=== PATIENT | female | born 1965 | race Caucasian/White ===

== ENCOUNTER 2016-11-05 13:06 | Emergency (ER) | payer MEDICARE, MEDICAID ==
[2016-11-05] MEDS ORDERED: NORMAL SALINE 1000 ML 1,000 ML IV PRN (14:02)
[2016-11-05] MEDS ORDERED: ONDANSETRON HCL INJ/PF 4 MG/2 ML SDV IV ONE ×2 (14:03→15:57)
--- NOTE | 2016-11-05 14:05 | ER Document Report ---
ED Medical Screen (RME) - General Chief Complaint: Vomiting Stated Complaint: WEAKNESS Time Seen by Provider: 11/05/16 14:01 Notes: Patient states that several weeks ago she went to her family physician with nausea and vomiting and was diagnosed with H pylori infection. She states she was then placed on a triple regimen of Carafate Prilosec and Biaxin. Also Flagyl was added. She states that the vomiting has increased and she also now has diarrhea. Patient also has diffuse abdominal pain. Patient states she has been unable to eat for almost 1 week. TRAVEL OUTSIDE OF THE [place] IN LAST 30 DAYS: No - Related Data Allergies/Adverse Reactions: Sulfa (Sulfonamide Antibiotics) Allergy (Severe, Verified 11/05/16 13:13) doxycycline [Doxycycline] Allergy (Verified 11/05/16 13:13) gatifloxacin [From Tequin] Allergy (Verified 11/05/16 13:13) nitrofurantoin [From Macrobid] Allergy (Verified 11/05/16 13:13) nitrofurantoin macrocrystalline [From Macrobid] Allergy (Verified 11/05/16 13:13 ) promethazine HCl [From Phenergan] Allergy (Verified 11/05/16 13:13) sumatriptan [From Imitrex] Allergy (Verified 11/05/16 13:13) sumatriptan succinate [From Imitrex] Allergy (Verified 11/05/16 13:13) Past Medical History - Past Medical History Cardiac Medical History: Reports: Hx Hypertension Pulmonary Medical History: Reports: Hx Asthma Neurological Medical History: Reports: Hx Migraine Endocrine Medical History: Reports: Hx Diabetes Mellitus Type 2 Renal/ Medical History: Denies: Hx Peritoneal Dialysis Past Surgical History: Reports: Hx Section - x2, Hx Hysterectomy, Hx Orthopedic Surgery - carpal tunnel - Immunizations Hx Diphtheria, Pertussis, Tetanus Vaccination: Yes Physical Exam - Vital signs Vitals: Temp Pulse Resp BP Pulse Ox 99.8 F 90 20 181/97 H 96 11/05/16 13:15 11/05/16 13:15 11/05/16 13:15 11/05/16 13:15 11/05/16 13:15 Course - Vital Signs Vital signs: Temp Pulse Resp BP Pulse Ox 99.8 F 90 20 181/97 H 96 11/05/16 13:15 11/05/16 13:15 11/05/16 13:15 11/05/16 13:15 11/05/16 13:15
[2016-11-05 14:44] LABS: ABSOLUTE BASOPHILS # (AUTO) 0.1 10^3/uL (0.0-0.2); ABSOLUTE EOSINOPHILS # (AUTO) 0.2 10^3/uL (0.0-0.6); ABSOLUTE LYMPHOCYTES (AUTO) 2.5 10^3/uL (0.5-4.7); ABSOLUTE MONOCYTES (AUTO) 0.9 10^3/uL (0.1-1.4); ABSOLUTE NEUT (AUTO) 12.3 10^3/uL (1.7-8.2); BASOPHILS % (AUTO) 0.7 % (0-2); HEMATOCRIT 46.2 % (36.0-47.0); HEMOGLOBIN 15.3 g/dL (12.0-15.5); HGB HCT DIFFERENCE -0.3; LYMPHOCYTES % (AUTO) 15.8 % (13-45); MEAN CORPUSCULAR HEMOGLOBIN 26.7 pg (27.0-33.4); MEAN CORPUSCULAR VOLUME 81 fl (80-97); MONOCYTES % (AUTO) 5.5 % (3-13); RED CELL DISTRIBUTION WIDTH 16.2 % (11.5-14.0)
[2016-11-05 14:56] LABS: APPEARANCE,URINE SLIGHTLY-CLOUDY; BILIRUBIN,URINE NEGATIVE (NEGATIVE); GLUCOSE, URINE 50 mg/dL (NEGATIVE); KETONES,URINE NEGATIVE (NEGATIVE); LEUKOCYTE ESTERASE,URINE SMALL (NEGATIVE); NITRITE,URINE NEGATIVE (NEGATIVE); PROTEIN,URINE NEGATIVE (NEGATIVE); URINE SPECIFIC GRAVITY 1.021; UROBILINOGEN,URINE NEGATIVE mg/dL (<2.0)
[2016-11-05 15:02] LABS: ALANINE AMINOTRANSFERASE 72 U/L (9-52); ALBUMIN 4.1 g/dL (3.5-5.0); ALKALINE PHOSPHATASE 114 U/L (38-126); ANION GAP 12 (5-19); ASPARTATE AMINO TRANSFERASE 45 U/L (14-36); BILIRUBIN,DIRECT 0.5 mg/dL (0.0-0.4); BILIRUBIN,TOTAL 0.6 mg/dL (0.2-1.3); BLOOD UREA NITROGEN 9 mg/dL (7-20); CALCIUM 9.7 mg/dL (8.4-10.2); CARBON DIOXIDE 25 mmol/L (22-30); CHLORIDE 107 mmol/L (98-107); CREATININE RESULT 0.67 mg/dL (0.52-1.25); GLUCOSE 103 mg/dL (75-110); LIPASE 104.1 U/L (23-300); POTASSIUM 3.6 mmol/L (3.6-5.0); SODIUM 143.6 mmol/L (137-145); TOTAL PROTEIN 7.4 g/dL (6.3-8.2)
--- NOTE | 2016-11-05 15:43 | ER Document Report ---
ED GI/ - General Information source: Patient TRAVEL OUTSIDE OF THE [place] IN LAST 30 DAYS: No - HPI Patient complains to provider of: Abdominal pain, Diarrhea, Vomiting Onset: Other - 2 weeks Timing/Duration: Constant Quality of pain: Cramping Associated symptoms: Other - see above <JOSSY WILLETT - Last Filed: 11/05/16 15:43> <MOLLY QUICK - Last Filed: 11/05/16 19:09> - General Chief Complaint: Vomiting Stated Complaint: WEAKNESS Time Seen by Provider: 11/05/16 14:01 Notes: Patient jordy 51 year old female who presents to the ED with complaints of nausea , vomiting, diarrhea(1-2x per hour), and abdominal pain x2 weeks. At that time patient was seen by her PCP and was diagnosed with H Pylori and she was placed on Carafate, Prilosec, Biaxin and Flagyn. Patients symptoms have worsened and she has been unable to eat for almost 1 week. Patient is unsure if she has a fever or not. (JOSSY WILLETT) - Related Data Allergies/Adverse Reactions: Sulfa (Sulfonamide Antibiotics) Allergy (Severe, Verified 11/05/16 13:13) doxycycline [Doxycycline] Allergy (Verified 11/05/16 13:13) gatifloxacin [From Tequin] Allergy (Verified 11/05/16 13:13) nitrofurantoin [From Macrobid] Allergy (Verified 11/05/16 13:13) nitrofurantoin macrocrystalline [From Macrobid] Allergy (Verified 11/05/16 13:13 ) promethazine HCl [From Phenergan] Allergy (Verified 11/05/16 13:13) sumatriptan [From Imitrex] Allergy (Verified 11/05/16 13:13) sumatriptan succinate [From Imitrex] Allergy (Verified 11/05/16 13:13) Home Medications: Current Home Medications Fentanyl 1 each TD ASDIR PRN 11/05/16 [History] Hydrochlorothiazide 25 mg PO DAILY 11/05/16 [History] Insulin Glargine,Hum.rec.anlog [Lantus] 100 unit SQ DAILY 11/05/16 [History] Metformin HCl [Glucophage] 1,000 mg PO BID 11/05/16 [History] Sitagliptin Phosphate [Januvia 25 mg Tablet] 25 mg PO DAILY 11/05/16 [History] Past Medical History - General Information source: Patient - Social History Smoking Status: Current Every Day Smoker Chew tobacco use (# tins/day): No Frequency of alcohol use: None Drug Abuse: None Family History: CAD Patient has suicidal ideation: No Patient has homicidal ideation: No - Past Medical History Cardiac Medical History: Reports: Hx Hypertension Pulmonary Medical History: Reports: Hx Asthma Neurological Medical History: Reports: Hx Migraine Endocrine Medical History: Reports: Hx Diabetes Mellitus Type 2 Renal/ Medical History: Denies: Hx Peritoneal Dialysis Past Surgical History: Reports: Hx Section - x2, Hx Hysterectomy, Hx Orthopedic Surgery - carpal tunnel - Immunizations Hx Diphtheria, Pertussis, Tetanus Vaccination: Yes Hx Pneumococcal Vaccination: 03/31/06 <JOSSY WILLETT - Last Filed: 11/05/16 15:43> Review of Systems - Review of Systems Constitutional: No symptoms reported EENT: No symptoms reported Cardiovascular: No symptoms reported Respiratory: No symptoms reported Gastrointestinal: See HPI, Abdominal pain, Diarrhea, Nausea, Vomiting Genitourinary: No symptoms reported Female Genitourinary: No symptoms reported Musculoskeletal: No symptoms reported Skin: No symptoms reported Hematologic/Lymphatic: No symptoms reported Neurological/Psychological: No symptoms reported <JOSSY WILLETT - Last Filed: 11/05/16 15:43> Physical Exam - General General appearance: Appears well, Alert In distress: None - HEENT Head: Normocephalic, Atraumatic Eyes: Normal Extraocular movements intact: Yes Pupils: PERRL - Respiratory Respiratory status: No respiratory distress Breath sounds: Normal - Cardiovascular Rhythm: Regular Heart sounds: Normal auscultation Murmur: No - Abdominal Inspection: Morbidly Obese Bowel sounds: Normal - dull percussion throughout Tenderness: Tender - diffusely, worse in the lower abdomen than upper - Back Back: Normal - Extremities General upper extremity: Normal inspection, Normal ROM General lower extremity: Normal inspection, Normal ROM. No: Edema - Neurological Neuro grossly intact: Yes - Psychological Associated symptoms: Normal affect, Normal mood - Skin Skin Temperature: Warm Skin Moisture: Dry Skin Color: Normal <JOSSY WILLETT - Last Filed: 11/05/16 15:43> Course - Laboratory Result Diagrams: 11/05/16 14:24 11/05/16 14:24 <JOSSY WILLETT - Last Filed: 11/05/16 15:43> - Laboratory Result Diagrams: 11/05/16 14:24 11/05/16 14:24 - Diagnostic Test Radiology reviewed: Image reviewed, Reports reviewed - CT scan with IV contrast does not show any acute abnormalities. <MOLLY QUICK - Last Filed: 11/05/16 19:09> - Re-evaluation Re-evalutation: 11/05/16 19:08 The patient's white blood cell count was a little elevated. CT scan was unremarkable. The patient has not had diarrhea since she got here despite reporting it was occurring 1-2 times per hour. She states at this time she is only passing gas. (MOLLY QUICK) - Vital Signs Vital signs: Temp Pulse Resp BP Pulse Ox 98.6 F 78 16 113/56 L 97 11/05/16 17:53 11/05/16 17:53 11/05/16 17:53 11/05/16 17:53 11/05/16 17:53 - Laboratory Laboratory results interpreted by me: 11/05/16 11/05/16 11/05/16 14:24 14:24 14:24 WBC 16.0 H RBC 5.70 H MCH 26.7 L RDW 16.2 H Absolute Neutrophils 12.3 H Direct Bilirubin 0.5 H AST 45 H ALT 72 H Urine Glucose (UA) 50 H Ur Leukocyte Esterase SMALL H Discharge <JOSSY WILLETT - Last Filed: 11/05/16 15:43> <MOLLY QUICK - Last Filed: 11/05/16 19:09> - Discharge Clinical Impression: Nausea, vomiting and diarrhea Abdominal pain Qualifiers: Abdominal location: generalized Qualified Code(s): R10.84 - Generalized abdominal pain Condition: Stable Disposition: HOME, SELF-CARE Additional Instructions: Abdominal Pain: There are many causes of abdominal pain. Pain can mean a serious problem requiring surgery (such as appendicitis). It can also be an innocent problem that goes away on its own (such as a viral infection). Often, time must pass to determine the cause of pain. The physician does not feel that hospitalization is necessary, at present. Things may change within the next 24 hours. Call the doctor or come back for re- examination if any problems occur, such as: (1) Pain that becomes more severe, steady, or becomes concentrated in one specific area. Also, pain that is more severe with movement or coughing. (2) Vomiting that persists or becomes more frequent. (3) Blood in the vomitus, urine, or bowel movements. Blood in the stool may have a tarry or black appearance. (4) Shaking chills or fever greater than 100 degrees F. (5) The abdomen becomes more distended or swollen. (6) Bowel movements cease. (7) Failure to improve as expected. Gastroenteritis: You may have gastroenteritis. This is an irritation of the stomach and intestinal tract. It's usually caused by a virus, but can also be caused by bacteria, toxins that cause food poisoning, or excessive alcohol intake. Symptoms may include fever, painful abdominal cramps, nausea, vomiting, and diarrhea. Start with small amounts (two to six ounces) of clear liquids (soft drinks , herb teas, broth, etc). Try to take fluids frequently even if you are vomiting, to prevent dehydration. When liquids are being consumed successfully , advance to small amounts of bland food (mashed potato, toast) for 6 - 12 hours. Gastroenteritis rarely requires medication. It goes away by itself. Use good handwashing so you don't spread germs. Wash underwear in very hot water. If symptoms are severe, talk to the doctor. Call your physician if blood appears in your vomitus or stool, if vomiting lasts longer than 24 hours, if the abdominal pain worsens or becomes localized to one area, or if you develop high fever. TAKE THE PAIN MEDICATION DISPENSED TONIGHT IF NEEDED. DRINK SMALL SIPS OF COOL CLEAR LIQUIDS. FOLLOW UP WITH YOUR DOCTOR TOMORROW FOR RECHECK. Scribe Attestation: 11/05/16 18:26 I personally performed the services described in the documentation, reviewed and edited the documentation which was dictated to the scribe in my presence, and it accurately records my words and actions. (MOLLY QUICK) Scribe Documentation - Scribe Written by [place]:: wellington Wray, 11/05/2016, [id number] acting as scribe for :: Vonnie <JOSSY WILLETT - Last Filed: 11/05/16 15:43>
[2016-11-05] MEDS ORDERED: MORPHINE SULFATE 10 MG/ML INJ IV ONE (15:57)
[2016-11-05] MEDS ORDERED: NORMAL SALINE 1000 ML 1,000 ML IV ONE (17:07)
--- NOTE | 2016-11-05 18:43 | RADIOLOGY REPORT (SQ) ---
EXAM DESCRIPTION: CT ABD/PELVIS WITH IV ONLY COMPLETED DATE/TIME: 11/05/2016 6:33 pm REASON FOR STUDY: abd pain, leukocytosis COMPARISON: None. TECHNIQUE: CT scan of the abdomen and pelvis performed using helical scanning technique with dynamic intravenous contrast injection. No oral contrast. Images reviewed with lung, soft tissue, and bone windows. Reconstructed coronal and sagittal MPR images reviewed. Delayed images for evaluation of the urinary system also acquired. All images stored on PACS. All CT scanners at this facility use dose modulation, iterative reconstruction, and/or weight based d osing when appropriate to reduce radiation dose to as low as reasonably achievable (ALARA). [facility]: Dose Right [facility]: CareDose [facility]: Dose Right [facility]: Teradose 4D [facility]: Railsware CONTRAST TYPE AND DOSE: 65 Isovue 370 RENAL FUNCTION: BUN 9, creatinine 0.67 RADIATION DOSE: . LIMITATIONS: None. FINDINGS: LOWER CHEST: No significant findings. No nodules or infiltrates. LIVER: Normal size. No masses. No dilated ducts. SPLEEN: Normal size. No focal lesions. PANCREAS: No masses. No significant calcifications. No adjacent inflammation or peripancreatic fluid collections. Pancreatic duct not dilated. GALLBLADDER: No identified stones by CT criteria. No inflammatory changes to suggest cholecystitis. ADRENAL GLANDS: No significant masses or asymmetry. RIGHT KIDNEY AND URETER: No solid masses. No significant calcifications. No hydronephrosis or hyd roureter. LEFT KIDNEY AND URETER: No solid masses. No significant calcifications. No hydronephrosis or hydr oureter. AORTA AND VESSELS: No aneurysm. No dissection. Renal arteries, SMA, celiac without stenosis. RETROPERITONEUM: No retroperitoneal adenopathy, hemorrhage or masses. BOWEL AND PERITONEAL CAVITY: No masses or inflammatory changes. No free fluid or peritoneal masses. APPENDIX: Normal. PELVIS: No mass. No free fluid. Normal bladder. ABDOMINAL WALL: There has been prior hernia repair. BONES: No significant or acute findings. OTHER: No other significant finding. IMPRESSION: NO SIGNIFICANT OR ACUTE FINDING IN THE ABDOMEN OR PELVIS ON CT SCAN WITH IV CONTRAST. TECHNICAL DOCUMENTATION: JOB ID: [id number] Quality ID # [id number]: Final reports with documentation of one or more dose reduction techniques (e.g., Au tomated exposure control, adjustment of the mA and/or kV according to patient size, use of iterative reconstruction technique) 2010 [employer]- All Rights Reserved
[2016-11-05] MEDS ORDERED: HYDROCODONE/ACETAMINOPHEN 5-325 MG 6 TAB/DSPK PO PRN (19:08)
[2016-11-05 19:25] VITALS: BP 146/91
== END 2016-11-05 19:25 | disposition home or self-care (01) ==
LOC: ER 13:06
DX: R10.84 Generalized abdominal pain (principal); R11.2 Nausea with vomiting, unspecified; R19.7 Diarrhea, unspecified; R53.1 Weakness; Z79.899 Other long term (current) drug therapy; F17.200 Nicotine dependence, unspecified, uncomplicated
CPT/HCPCS: 96376; 99284; 96361; 96374; 96375; 36415; 83690; 85025; 80053; 81001; 74177; J2270; J2405; J7030